=== PATIENT | female | born 2000 | race Caucasian/White ===

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

== ENCOUNTER 2018-07-10 15:46 | Emergency (ER) | payer BC, MEDICAID ==
--- NOTE | 2018-07-10 16:06 | UC ---
Throat Pain/Nasal Moe HPI - HPI Summary HPI Summary: 18-year-old woman. His symptoms of headache neck pain chills fevers runny nose sore throat cough chest congestion bodyaches. Her partner was diagnosed with influenza. She's been taking [id number] medicines which do help with the symptoms. She's also been having some dizziness and reports she get repeated ear infections. Patient reports that she's been having PID symptoms and was seen at [facility] just be for July 06, 2018 and given a shot of Rocephin and sent home with 2 bottles of antibiotic pills. She is not taken any of the pills. - History of Current Complaint Stated Complaint: BODYACHE,SORE THROAT Time Seen by Provider: 07/10/18 16:00 Hx Last Menstrual Period: 12/11/2016 - Allergies/Home Medications Allergies/Adverse Reactions: Allergies Allergy/AdvReac Type Severity Reaction Status Date / Time dextromethorphan Allergy Hives/Diff. Verified 07/10/18 16:03 Breathing/I tching flu shot Allergy Swelling Uncoded 07/10/18 16:03 Of Face,Lips,& Throat Home Medications: Home Medications Phenylephrine/Dm/Acetaminop/GG [Mucinex [id number] Lq] 177 ml PO ONCE 07/10/18 [History Confirmed 07/10/18] PMH/Surg Hx/FS Hx/Imm Hx - Additional Past Medical History Additional PMH: RECENT PID DX Previously Healthy: Yes Other History Of: Negative For: Anticoagulant Therapy - Surgical History Surgical History: None - Family History Known Family History: Positive: Cardiac Disease, Hypertension, Diabetes - Social History Alcohol Use: Occasionally - couple of times a month Substance Use Type: None Smoking Status (MU): Light Every Day Tobacco Smoker Amount Used/How Often: 3 cigs per day - Immunization History Most Recent Influenza Vaccination: unknown Most Recent Tetanus Shot: up to date Review of Systems All Other Systems Reviewed And Are Negative: Yes Constitutional: Positive: Fever, Chills, Other - DIZZINESS Skin: Positive: Negative Eyes: Positive: Negative ENT: Positive: Sore Throat, Nasal Discharge, Sinus Congestion, Sinus Pain/ Tenderness Respiratory: Positive: Cough Cardiovascular: Positive: Negative Gastrointestinal: Positive: Negative Motor: Positive: Negative Neurovascular: Positive: Negative Musculoskeletal: Positive: Myalgia - DIFFUSE MYALGIA TO INCLUDE MIDLINE NECK Neurological: Positive: Headache - CIRCUMFERENTIAL Psychological: Positive: Negative Is Patient Immunocompromised?: No Physical Exam Triage Information Reviewed: Yes Appearance: No Pain Distress, Well-Nourished, Ill-Appearing - MILD Vital Signs Reviewed: Yes Eye Exam: Normal Eyes: Positive: Conjunctiva Clear ENT: Positive: Pharyngeal erythema, Nasal congestion, Nasal drainage, TM dull, Uvula midline Neck: Positive: Supple, Other: - TENDER MID LINE Respiratory: Positive: Lungs clear, Normal breath sounds, No respiratory distress Cardiovascular: Positive: RRR Musculoskeletal Exam: Normal Musculoskeletal: Positive: Strength Intact, ROM Intact Neurological Exam: Normal Neurological: Positive: Alert, Muscle Tone Normal Psychological Exam: Normal Psychological: Positive: Age Appropriate Behavior Skin Exam: Normal Throat Pain/Nasal Course/Dx - Course Course Of Treatment: I discussed the rapid strep and influenza results with the patient. At that time the patient let me know she [facility] a diagnosis [facility] just before July 06, 2018. I discussed various treatment options with the patient at this time the plan will be to treat with Rocephin here and the patient will take the antibiotics from [facility] at home. She declined any new prescriptions for antibiotics. Patient is to get a reevaluation with any questions or concerns or if she worsens. - Differential Dx/Diagnosis Provider Diagnosis: Upper respiratory infection, PID (acute pelvic inflammatory disease) Discharge - Sign-Out/Discharge Documenting (check all that apply): Patient Departure All imaging exams completed and their final reports reviewed: No Studies - Discharge Plan Condition: Stable Disposition: HOME Patient Education Materials: Upper Respiratory Infection (ED), Pelvic Inflammatory Disease (ED) Referrals: [facility] [Outside] Additional Instructions: FOLLOW UP WITH [facility] AND YOUR PRIMARY CARE DOCTOR IF NOT COMPLETELY IMPROVED. TAKE ALL OF YOUR ANTIBIOTICS DIRECTED. GET RECHECKED FOR ANY WORSENING OF YOUR CONDITION; PAIN, FEVER, YOU FEEL ILL OR QUESTIONS OR CONCERNS. - Billing Disposition and Condition Condition: STABLE Disposition: Home
[2018-07-10 16:09] VITALS: BP 122/82
[2018-07-10] MEDS ORDERED: cefTRIAXone VIAL(*) 250 MG VIAL IM ONE (17:18)
[2018-07-10] MEDS ORDERED: Lidocaine 1%* 5 ML VIAL INJ ONE (17:37)
--- NOTE | 2018-07-10 17:46 | UC ---
- Progress Note Progress Note: Exam performed by Vivi FRANCES: Outer vaginal area had no ulcerations or lesions. No CMT, + white thick discharge. No malodor. Course/Dx - Diagnoses Provider Diagnoses: Upper respiratory infection, PID (acute pelvic inflammatory disease) Discharge - Sign-Out/Discharge Documenting (check all that apply): Patient Departure All imaging exams completed and their final reports reviewed: No Studies - Discharge Plan Condition: Good Disposition: HOME Patient Education Materials: Pelvic Inflammatory Disease (ED), Upper Respiratory Infection (ED) Referrals: [facility] [place] [facility] [Outside] Additional Instructions: FOLLOW UP WITH [facility] AND YOUR PRIMARY CARE DOCTOR IF NOT COMPLETELY IMPROVED. TAKE ALL OF YOUR ANTIBIOTICS DIRECTED. GET RECHECKED FOR ANY WORSENING OF YOUR CONDITION; PAIN, FEVER, YOU FEEL ILL OR QUESTIONS OR CONCERNS. - Billing Disposition and Condition Condition: GOOD Disposition: Home
== END 2018-07-10 18:00 | disposition home or self-care (01) ==
LOC: UCEAST 15:46
DX: J06.9 Acute upper respiratory infection, unspecified (principal); N73.9 Female pelvic inflammatory disease, unspecified; F17.210 Nicotine dependence, cigarettes, uncomplicated; Z88.8 Allergy status to other drugs, medicaments and biological substances; Z88.7 Allergy status to serum and vaccine
CPT/HCPCS: 81003; 84702; 87480; 87491; 87510; 87591; 87651; 87660; 96372; 99212; G0463; J0696

== ENCOUNTER 2019-06-05 17:51 | Emergency (ER) | payer SELFPAY ==
--- NOTE | 2019-06-05 17:57 | UC ---
Lower Extremity/Ankle HPI - HPI Summary HPI Summary: 19 yo female presents with LEFT ankle pain. She tells me that around 0300 this morning she was walking home and stepped in a pothole that she thought was a shallow puddle - inverted her left ankle. Since that time has had pain and swelling to the lateral aspect that is worse with weight bearing. She has fractured this ankle in the past and is concerned for this today. She is currently ambulatory without assistance. Nothing OTC for discomfort. Denies numbness or tinglingf . - History of Current Complaint Stated Complaint: LEFT ANKLE PAIN Time Seen by Provider: 06/05/19 17:57 Hx Obtained From: Patient Hx Last Menstrual Period: 12/11/2016 Onset/Duration: Sudden Onset Severity Initially: Moderate Severity Currently: Moderate Pain Intensity: 6 Pain Scale Used: 0-10 Numeric - Allergies/Home Medications Allergies/Adverse Reactions: Allergies Allergy/AdvReac Type Severity Reaction Status Date / Time dextromethorphan Allergy Hives/Diff. Verified 06/05/19 18:05 Breathing/I tching flu shot Allergy Swelling Uncoded 06/05/19 18:05 Of Face,Lips,& Throat Home Medications: Home Medications NK [No Home Medications Reported] 06/05/19 [History Confirmed 06/05/19] PMH/Surg Hx/FS Hx/Imm Hx - Additional Past Medical History Additional PMH: None Other History Of: Negative For: Anticoagulant Therapy - Surgical History Surgical History: None - Family History Known Family History: Positive: Cardiac Disease, Hypertension, Diabetes - Social History Occupation: Student Lives: Dormitory/Roommates Alcohol Use: Occasionally - couple of times a month Substance Use Type: None Smoking Status (MU): Light Every Day Tobacco Smoker Type: Cigarettes Amount Used/How Often: 3 cigs per day - Immunization History Most Recent Influenza Vaccination: unknown Most Recent Tetanus Shot: up to date Review of Systems All Other Systems Reviewed And Are Negative: No Constitutional: Positive: Negative Skin: Positive: Negative Respiratory: Positive: Negative Cardiovascular: Positive: Negative Neurovascular: Positive: Negative Musculoskeletal: Positive: Other: - Left ankle injury Neurological: Positive: Negative Psychological: Positive: Negative Physical Exam - Summary Physical Exam Summary: GENERAL: NAD. WDWN. No pain distress. SKIN: No rashes, sores, lesions, or open wounds. CHEST: No accessory muscle use. Breathing comfortably and in no distress. CV: Pulses intact PT and DP. Cap refill <2seconds MSK: LEFT ANKLE: Mild edema about lateral malleolus. Mild TTP ATFL. Strength 5/ 5. Negative talar tilt. No increased laxity. Negative Thornton test. NEURO: Alert. Sensations intact and symmetric B/L LEs PSYCH: Age appropriate behavior. Triage Information Reviewed: Yes Vital Signs: Vital Signs: Temp Pulse Resp BP Pulse Ox 99.5 F 83 16 111/77 99 06/05/19 18:02 06/05/19 18:02 06/05/19 18:02 06/05/19 18:02 06/05/19 18:02 Vital Signs Reviewed: Yes Diagnostics - Radiology Ankle XR Radiology Interpretation Completed By: ED Physician Summary of Radiographic Findings: No fx. Bone island noted Lower Extremity Course/Dx - Course Course Of Treatment: XR wet read negative for fx. Discussed bone island appearing on calcaneus and pt is unaware of this in the past. She follows with an Orthopedic doctor in [place] - I recommend that she schedule an appointment there to be rechecked regarding this within 1 month. Regarding her acute ankle injury - suspect sprain. Advised to RICE and she was provided with crutches to use for comfort. Tylenol/ibuprofen as directed for pain. - Differential Dx/Diagnosis Provider Diagnosis: Ankle sprain Discharge ED - Sign-Out/Discharge Documenting (check all that apply): Patient Departure All imaging exams completed and their final reports reviewed: No - Discharge Plan Condition: Stable Disposition: HOME Patient Education Materials: Ankle Sprain (ED) Referrals: No Primary Care Phys,NOPCP [Primary Care Provider] - Additional Instructions: If you develop a fever, shortness of breath, chest pain, new or worsening symptoms - please call your PCP or go to the ED immediately. Rest, Ice, and elevate your ankle to reduce pain and swelling Use the crutches as needed for comfort On your x-ray there is a small bone island that does not appear concerning at this time, but I recommend that you follow up with your Orthopedic doctor in [place] for further evaluation of this to insure it is not worrisome - Billing Disposition and Condition Condition: STABLE Disposition: Home
[2019-06-05 18:04] VITALS: BP 111/77
--- NOTE | 2019-06-06 08:32 | UC ---
- Progress Note Progress Note: Final x-ray read reviewed. IMPRESSION: SMALL AVULSION FRACTURE FRAGMENT ARISING FROM THE TIP OF THE FIBULA. This was not seen on the initial reading of the x- ray however does not change the patient's plan of care except that the recommendation for follow up with orthopedic surgery should occur so that the injury can be further evaluated. Nursing to contact patient. Course/Dx - Diagnoses Provider Diagnoses: Ankle sprain Discharge ED - Sign-Out/Discharge Documenting (check all that apply): Patient Departure All imaging exams completed and their final reports reviewed: Yes - Discharge Plan Condition: Stable Disposition: HOME Patient Education Materials: Ankle Sprain (ED) Referrals: No Primary Care Phys,NOPCP [Primary Care Provider] - Additional Instructions: If you develop a fever, shortness of breath, chest pain, new or worsening symptoms - please call your PCP or go to the ED immediately. Rest, Ice, and elevate your ankle to reduce pain and swelling Use the crutches as needed for comfort On your x-ray there is a small bone island that does not appear concerning at this time, but I recommend that you follow up with your Orthopedic doctor in [place] for further evaluation of this to insure it is not worrisome - Billing Disposition and Condition Condition: STABLE Disposition: Home
== END 2019-06-05 18:35 | disposition home or self-care (01) ==
LOC: UCEAST 17:51
DX: S82.832A Other fracture of upper and lower end of left fibula, initial encounter for closed fracture (principal); S93.402A Sprain of unspecified ligament of left ankle, initial encounter; Z88.8 Allergy status to other drugs, medicaments and biological substances; F17.210 Nicotine dependence, cigarettes, uncomplicated; X50.9XXA Other and unspecified overexertion or strenuous movements or postures, initial encounter; Y93.01 Activity, walking, marching and hiking; Y92.009 Unspecified place in unspecified non-institutional (private) residence as the place of occurrence of the external cause
CPT/HCPCS: 99211; G0463